=== PATIENT | female | born 1980 | race African-American/Black ===

== ENCOUNTER 2018-02-06 08:02 | Emergency (ER) | payer BC, OTHER ==
[~2018-02-06] VITALS: Ht 160 cm; Wt 47.6 kg
--- NOTE | 2018-02-06 08:20 | NUR ---
Dr Murguia at the bedside for MSE.
[2018-02-06 08:39] LABS: BASOPHILS % (AUTO) 0.4 % (0.0-2.0); EOSINOPHILS % (AUTO) 0.7 % (0.0-7.0); HEMATOCRIT 41.5 % (31.2-41.9); HEMOGLOBIN 13.8 g/dL (10.9-14.3); LYMPHOCYTES # (AUTO) 1.4 K/uL (20.0-40.0); LYMPHOCYTES % (AUTO) 22.3 % (20.5-51.5); MEAN CORPUSCULAR HEMOGLOBIN 28.7 uug (24.7-32.8); MEAN CORPUSCULAR HGB CONC 33 g/dL (32.3-35.6); MEAN CORPUSCULAR VOLUME 86.1 fL (75.5-95.3); MONOCYTES # (AUTO) 0.4 K/uL (2.0-10.0); MONOCYTES % (AUTO) 6.4 % (0.0-11.0); NEUTROPHILS # (AUTO) 4.5 K/uL (1.8-8.9); NEUTROPHILS % (AUTO) 70.2 % (38.5-71.5); PLATELET COUNT (AUTO) 207 K/uL (179-408); RED BLOOD CELL COUNT(AUTO) 4.82 MIL/uL (3.63-4.92); WHITE BLOOD COUNT (AUTO) 6.4 K/uL (3.8-11.8)
[2018-02-06 08:47] LABS: CARBON DIOXIDE 21 mmol/L (21-32); CHLORIDE 105 mmol/L (98-107); CREATININE 0.8 mg/dL (0.6-1.3); GLUCOSE 80 mg/dL (74-106); POTASSIUM 3.4 mmol/L (3.5-5.1); UREA NITROGEN, BLOOD 9 mg/dL (7-18)
[2018-02-06 08:50] LABS: ETHANOL < 3 MG/DL (0-0)
[2018-02-06 08:52] LABS: ALANINE AMINOTRANSFERASE 14 U/L (14-59); ALKALINE PHOSPHATASE 43 U/L (50-136); ASPARTATE AMINOTRANSFERASE 12 U/L (15-37); BILIRUBIN,DIRECT 0.2 mg/dL (0.0-0.2)
--- NOTE | 2018-02-06 08:58 | NUR ---
Pt is resting in bed, at the bedside. Pt remaines anxious and fearfull.
[2018-02-06 08:59] LABS: THYROID STIMULATING HORMONE 1.155 mIU/mL (0.358-3.740)
[2018-02-06 09:00] LABS: *BILIRUBIN,URIN 1+ (NEGATIVE); *BLOOD, URINE 3+ (NEGATIVE); *CLARITY,URINE CLEAR (CLEAR); *COLOR,URINE YELLOW (YELLOW); *KETONES,URINE 4+ (NEGATIVE); *PROTEIN,URINE 2+ (NEGATIVE); *UROBILINOGEN,URINE 0.2 E.U./dl (NORMAL); LEUKOCYTE ESTERASE ,URINE TRACE (NEGATIVE); NITRITE, URINE NEGATIVE (NEGATIVE); UGLUCOSE NEGATIVE (NEGATIVE)
[2018-02-06 09:02] LABS: *URINE HCG, QUAL NEGATIVE (NEGATIVE)
--- NOTE | 2018-02-06 09:02 | NUR ---
Called [facility] [employer] project manager[employer], left message, awaiting call back.
[2018-02-06 09:04] LABS: BACTERIA,URINE FEW /HPF (NONE SEEN); RBC,URINE 50-80 /HPF (0-3); SQUAMOUS EPITHELIAL CELL,UR FEW /HPF (NONE SEEN)
[2018-02-06 09:10] LABS: *AMPHETAMINE, URINE NEGATIVE (NEGATIVE); *BARBITURATE, URINE NEGATIVE (NEGATIVE); *CANNABINOID, URINE NEGATIVE (NEGATIVE); *COCCAINE, URINE NEGATIVE (NEGATIVE); *OPIATE, URINE NEGATIVE (NEGATIVE); *PHENCYCLIDINE SCREEN,URINE NEGATIVE (NEGATIVE)
--- NOTE | 2018-02-06 09:32 | NUR ---
Called again and spoke to Zoe from [facility], ETA 1 hour.
--- NOTE | 2018-02-06 10:35 | NUR ---
Zoe at the bedside for psych eval, speaking to Pt and pt's .
[2018-02-06] MEDS ORDERED: LORAZEPAM 2 MG/1 ML VIAL ONE (11:10)
[2018-02-06] MEDS ORDERED: LORAZEPAM 2 MG/1 ML VIAL IM ONE (11:15)
--- NOTE | 2018-02-06 11:50 | NUR ---
Pt appears to be calm and collective at this time. Pt and request to be discharge home.
--- NOTE | 2018-02-06 11:56 | NUR ---
Patient discharged to home in stable conditon. Written and verbal after care instructions given. Patient verbalizes understanding of instructions. Pt left Er w/ steady gait accompained by .
[2018-02-06 12:01] VITALS: BP 128/66
--- NOTE | 2018-02-10 14:09 | NUR ---
Pt Urine Cx came back positive for mix contaminant and Citrobacter. Discussed the results with Dr Bonilla. he said patient was asymptomatic and Urine Cx was part of the psych protocol. No further treatment needed at this time for Urine Cx.
== END 2018-02-06 12:01 | disposition home or self-care (01) ==
LOC: ER 08:02
DX: F41.9 Anxiety disorder, unspecified (principal)
CPT/HCPCS: 36415; 80307; 84443; 84703; 85025; 87077; 87086; 93005; A4663; G0480; J2060